=== PATIENT | female | born 1960 | race Two or more races ===

== ENCOUNTER 2021-12-13 23:21 | Emergency (ER) | payer OTHER ==
[~2021-12-13] VITALS: Ht 175.3 cm; Wt 93.5 kg
[2021-12-14 03:15] VITALS: BP 142/76
== END 2021-12-14 03:25 | disposition home or self-care (01) ==
LOC: ER 23:26
DX: I10 Essential (primary) hypertension (principal); R00.2 Palpitations
CPT/HCPCS: 93005